=== PATIENT | female | born 1970 | race Caucasian/White ===

== ENCOUNTER → 2020-07-18 | Outpatient (CLI) | payer OTHER ==
--- NOTE | 2020-07-19 08:24 | US ---
EXAMINATION TYPE: US transvaginal DATE OF EXAM: 07/18/2020 COMPARISON: NONE CLINICAL HISTORY: N95.0 POSTMENOPAUSAL BLEEDING. Spotting TECHNIQUE: . Transvaginal sonographic images of the pelvis were acquired. Date of LMP: Patient states it has been a little over a year EXAM MEASUREMENTS: Uterus: 8.4 x 3.2 x 5.0 cm Endometrial Stripe: 0.8 cm Right Ovary: 2.3 x 1.3 x 1.5 cm Left Ovary: 1.8 x 0.8 x 1.6 cm 1. Uterus: Anteverted Heterogeneous. Hypoechoic area visualized measuring 1.6 x 1.8 x 1.8 cm 2. Endometrium: Thickened for post menopausal patient 3. Right Ovary: wnl 4. Left Ovary: wnl 5. Bilateral Adnexa: wnl 6. Posterior cul-de-sac: wnl IMPRESSION: 1. Uterine fibroid
== END | disposition home or self-care (01) ==
LOC: RADUSWWP 16:41
PROVIDERS: ATTEND Internal Medicine
DX: D25.9 Leiomyoma of uterus, unspecified (principal)
CPT/HCPCS: 76830

== ENCOUNTER → 2020-08-26 | Outpatient (CLI) | payer OTHER ==
[2020-08-26 12:12] LABS: Basophils # (A) 0.1 k/uL (0-0.2); Basophils % (A) 1 %; Eosinophils # (A) 0.1 k/uL (0-0.7); Eosinophils % (A) 2 %; HCT 46.5 % (34.0-46.0); HGB 15.1 gm/dL (11.4-16.0); Lymphocytes % (A) 27 %; MCH 30.1 pg (25.0-35.0); MCHC 32.4 g/dL (31.0-37.0); MCV 93.1 fL (80.0-100.0); Mean Platelet Volume 7.3; Monocytes # (A) 0.4 k/uL (0-1.0); Monocytes % (A) 5 %; Neutrophils # (A) 4.5 k/uL (1.3-7.7); Neutrophils % (A) 63 %; Platelet Count 295 k/uL (150-450); RDW 13.3 % (11.5-15.5); WBC 7.2 k/uL (3.8-10.6)
[2020-08-27 01:58] LABS: Follicle Stimulating Hormone 44.6 mIU/mL; Luteinizing Hormone 20.5 mIU/mL
== END | disposition home or self-care (01) ==
LOC: LABPAT 10:31
PROVIDERS: ATTEND Obstetrics & Gynecology
DX: Z01.818 Encounter for other preprocedural examination (principal); N95.0 Postmenopausal bleeding
CPT/HCPCS: 36415; 82670; 83001; 83002; 84443; 85025; 93005

== ENCOUNTER 2020-09-12 10:32 | Day surgery (SDC) | payer OTHER ==
[2020-09-10 18:30] VITALS: BMI 51.0
--- NOTE | 2020-09-10 18:49 | P.HPOB ---
History of Present Illness H&P Date: 09/10/20 Chief Complaint: Post menopausal bleeding Mariah is a 50-year-old female who has had postmenopausal bleeding sure was referred by her PCP in noted a few months ago that she had bleeding after intercourse. An ultrasound was done and it showed a 0.8 cm lining which is thickened for postmenopausal state. She and I did discuss options of D&C with hysteroscopy versus endometrial biopsy but she would prefer a more conclusive result. This way if there is a polyp present we'll be able to see it and hopefully remove it. Risks and benefits were discussed with the patient in detail and did include but were not limited to bleeding and infection, damage to bladder or bowel and uterine perforation. Past Medical History Past Medical History: No Reported History Additional Past Medical History / Comment(s): Poss sleep apnea, testing begins 09/20/20. c/o spotting, bleeding after intercourse History of Any Multi-Drug Resistant Organisms: None Reported Past Surgical History: No Surgical Hx Reported Past Anesthesia/Blood Transfusion Reactions: No Reported Reaction Smoking Status: Never smoker - Past Family History Mother Family Medical History: No Reported History Medications and Allergies Home Medications Medication Instructions Recorded Confirmed Type No Known Home Medications 03/04/16 09/10/20 History Allergies Allergy/AdvReac Type Severity Reaction Status Date / Time naltrexone HCl Allergy Unknown Verified 09/10/20 18:18 [From Contrave] sulfamethoxazole Allergy Unknown Verified 09/10/20 18:18 [From Bactrim] trimethoprim [From Bactrim] Allergy Unknown Verified 09/10/20 18:18 Exam Osteopathic Statement: *. No significant issues noted on an osteopathic structural exam other than those noted in the History and Physical/Consult. Intake and Output 09/10/20 09/10/20 09/10/20 06:59 14:59 22:59 Other: Weight 139.253 kg - OBG Physical Exam Breast: both: normal (no masses) Abdomen: bowel sounds normal, no diffuse tenderness, no bruit present, no guarding noted, no hepatomegaly, no splenomegaly, no mass Vulva: both: normal Vagina: normal moisture, no discharge Cervix: no lesion, no discharge Uterus: normal size, normal contour Adnexa: both: normal Anus/Rectum: normal perianal skin, no rectal mass, no hemorrhoids, heme negative
[~2020-09-12 10:32] MED LIST: DEXAMETHASONE SOD PHOSPHATE 4 MG/ML 1 ML VIAL IV ONE; HYDROmorphone 0.5 MG/0.5 ML SYRINGE IVP PRN; LACTATED RINGERS 1,000 ML IV SCH; ONDANSETRON 4 MG/2 ML VIAL IVP ONE; Pre Op ABX Message 1 EACH MISC MISCELLANE ONE
[2020-09-12] MEDS ORDERED: fentaNYL (PF) 50 MCG/ML 2 ML AMP ONE (12:32)
[2020-09-12] MEDS ORDERED: PROPOFOL 10 MG/ML 20 ML VIAL IV ONE (12:32)
[2020-09-12] MEDS ORDERED: LIDOCAINE 1% INJ 10MG/ML (20 ML MDV) ONE ×2 (12:32)
[2020-09-12] MEDS ORDERED: KETOROLAC 15 MG/ML 1 ML VIAL ONE (12:32)
[2020-09-12] MEDS ORDERED: MIDAZOLAM 2 MG/2 ML VIAL ONE (12:32)
[2020-09-12 13:16] VITALS: TEMP 97.8
--- NOTE | 2020-09-12 13:17 | P.OP ---
Date of Procedure: 09/12/20 Preoperative Diagnosis: Postmenopausal bleeding Postoperative Diagnosis: Same with polyp Procedure(s) Performed: D&C with hysteroscopy and polypectomy Anesthesia: BARB Surgeon: Dhiraj Ko Estimated Blood Loss (ml): 5 IV fluids (ml): 400 Pathology: other (Uterine curettings and polyp) Condition: stable Disposition: same day Operative Findings: Pathology pending Description of Procedure: Patient was taken to the operating suite where a general anesthetic was found be adequate. She was prepped and draped in the normal sterile fashion and placed in the dorsal lithotomy position. Initially a weighted speculum was inserted in the vagina and the anterior lip cervix identified and grasped with a single- tooth tenaculum. Cervix was then dilated and sounded to 8/2 cm. Initially couldn't see polyps at the cervical os. Camera was then inserted and a large polyp was noted in the endometrium. Camera was removed and using polyp forceps and clockwise rotation the polyp was removed at its base. Sharp curettings of endometrium were then obtained and sent to pathology for evaluation. Camera was reinserted and polyp does not appear to be present any longer. All instruments were therefore removed. Sponge, lap, needle counts were all correct 2. Patient was then taken to the recovery room in stable and satisfactory condition. Plan - Discharge Summary Discharge Rx Participant: No New Discharge Prescriptions: New Ibuprofen [Motrin] 600 mg PO Q6HR PRN #30 tab PRN Reason: Pain Discharge Medication List Ibuprofen [Motrin] 600 mg PO Q6HR PRN #30 tab 09/12/20 [Rx] Follow up Appointment(s)/Referral(s): Dhiraj Ko DO [Doctor of Osteopathic Medicine] - 1 Week Activity/Diet/Wound Care/Special Instructions: No heavy lifting limited stairs and driving, pelvic rest. If any high temperatures, heavy bleeding, or severe pain call my office Discharge Disposition: HOME SELF-CARE
[2020-09-12] MEDS ORDERED: HYDROmorphone 0.5 MG/0.5 ML SYRINGE IVP ONE (13:35)
[2020-09-12] MEDS ORDERED: LACTATED RINGERS 1,000 ML IV ONE (13:47)
[2020-09-12 13:58] VITALS: RESP 16
[2020-09-12] MEDS ORDERED: IBUPROFEN 200 MG TAB PO ONE (14:00)
[2020-09-12 14:31] VITALS: PULSE 70
[2020-09-12 14:32] VITALS: BP 150/86
== END 2020-09-12 14:53 | disposition home or self-care (01) ==
LOC: OR 10:32
PROVIDERS: ATTEND Obstetrics & Gynecology
DX: N95.0 Postmenopausal bleeding (principal); N84.0 Polyp of corpus uteri; N93.0 Postcoital and contact bleeding; G47.33 Obstructive sleep apnea (adult) (pediatric); E66.01 Morbid (severe) obesity due to excess calories; Z68.43 Body mass index [BMI] 50.0-59.9, adult; Z88.2 Allergy status to sulfonamides; Z88.8 Allergy status to other drugs, medicaments and biological substances
CPT/HCPCS: 88305; 58563; J2250; J1100; J2405; J2001; J3010; J1885; J2704; J1170

== ENCOUNTER → 2021-01-03 | Outpatient (CLI) | payer OTHER ==
--- NOTE | 2021-01-03 15:20 | XR ---
EXAMINATION TYPE: XR ankle complete LT DATE OF EXAM: 01/03/2021 CLINICAL HISTORY: Left ankle pain. TECHNIQUE: Frontal, lateral and oblique images of the left ankle are obtained. COMPARISON: None. FINDINGS: There is no acute fracture/dislocation evident in the left ankle. The ankle mortise appea rs within normal limits. Mild to moderate diffuse subcutaneous edema could reflect products of patien t's large body habitus. Moderate size inferior calcaneal spur. Large spur and curvilinear calcificati on or ossification posterior superior calcaneus at site of Achilles tendon insertion. IMPRESSION: As above.
== END | disposition home or self-care (01) ==
LOC: RADXRYALE 15:02
PROVIDERS: ATTEND Internal Medicine
DX: M77.52 Other enthesopathy of left foot and ankle (principal)

== ENCOUNTER → 2023-01-21 | Outpatient (CLI) | payer OTHER ==
--- NOTE | 2023-01-22 07:29 | US ---
EXAMINATION TYPE: US extremity nonvasc mass RT DATE OF EXAM: 01/21/2023 COMPARISON: NONE CLINICAL INDICATION: Female, 52 years old with history of R22.41 LOCALIZED SWELLING, MASS AND LUMP, R IGHT LO; Edema posterior right lower leg TECHNIQUE: FINDINGS: scanned area of concern, right posterior lower leg, unable to identify any discrete abnorm ality by ultrasound at this time IMPRESSION: No discrete abnormality appreciated. Clinical correlation advised.
== END | disposition home or self-care (01) ==
LOC: RADUSWWP 15:34
PROVIDERS: ATTEND Internal Medicine
DX: R22.41 Localized swelling, mass and lump, right lower limb (principal)